=== PATIENT | female | born 1970 | race African-American/Black ===

== ENCOUNTER → 2022-02-04 | Outpatient (CLI) | payer OTHER | LOC: CT 07:37 | PROVIDERS: ATTEND Family Medicine | DX: R07.9 Chest pain, unspecified (principal); R06.2 Wheezing | CPT/HCPCS: 71250 ==

== ENCOUNTER → 2022-05-12 | Outpatient (CLI) | payer BC | LOC: RAD 08:55 | PROVIDERS: ATTEND Family Medicine | DX: M79.606 Pain in leg, unspecified (principal); R22.40 Localized swelling, mass and lump, unspecified lower limb | CPT/HCPCS: 93970 ==